=== PATIENT | female | born 1965 | race Caucasian/White ===

== ENCOUNTER 2019-09-09 07:36 | Outpatient (CLI) | payer MEDICAID ==
[2019-09-09 08:33] LABS: CREATININE 0.75 mg/dL (0.55-1.02)
[2019-09-09] MEDS ORDERED: OMNIPAQUE 350 MG/ML, 75ML BOTTLE ONE (09:12)
== END 2019-09-09 23:59 | disposition home or self-care (01) ==
LOC: RAD 07:36
PROVIDERS: ATTEND Physician Assistant
DX: R07.81 Pleurodynia (principal); M25.78 Osteophyte, vertebrae
CPT/HCPCS: 36415; 71275; 82565; Q9967

== ENCOUNTER 2019-10-02 12:05 | Emergency (ER) | payer MEDICAID ==
[~2019-10-02] VITALS: Ht 170.2 cm; Wt 64.9 kg
[2019-10-02 12:47] LABS: BASOPHILS # (AUTO) 0.04 x10^3/uL (0-0.1); BASOPHILS % (AUTO) 1 % (0-1); EOSINOPHILS % (AUTO) 1 % (1-7); LYMPHOCYTES # (AUTO) 1.62 x10^3/uL (1-3.4); LYMPHOCYTES % (AUTO) 19 % (22-44); MD NO; MEAN CORPUSCULAR HEMOGLOBIN 31.7 pg (27.0-34.8); MEAN CORPUSCULAR HGB CONC 33.4 g/dL (32.4-35.8); MEAN PLATELET VOLUME 7.6 fL (7.4-10.4); MONOCYTES # (AUTO) 0.92 x10^3/uL (0.2-0.8); MONOCYTES % (AUTO) 11 % (2-9); NEUTROPHILS # (AUTO) 5.93 x10^3/uL (1.8-6.8); NEUTROPHILS % (AUTO) 69 % (42-75); PLATELET COUNT 259 x10^3/uL (130-400); RED BLOOD COUNT 4.83 x10^6/uL (3.82-5.3); RED CELL DISTRIBUTION WIDTH 19.5 % (9.6-15.2)
[2019-10-02 12:54] LABS: ALBUMIN 2.6 g/dL (3.4-5.0); ANION GAP 7 mmol/L (5-15); CALCIUM 7.6 mg/dL (8.5-10.1); CHLORIDE 96 mmol/L (98-107); CREATININE 0.74 mg/dL (0.55-1.02)
[2019-10-02 12:59] LABS: ALKALINE PHOSPHATASE 312 U/L (45-117); BILIRUBIN,TOTAL 0.9 mg/dL (0.2-1.0); TOTAL PROTEIN 7.3 g/dL (6.4-8.2); TROPONIN I < 0.015 ng/mL (0.000-0.045)
[2019-10-02 13:09] LABS: ALANINE AMINOTRANSFERASE 103 U/L (12-78)
--- NOTE | 2019-10-02 13:17 | NUR ---
PT ABLE TO AMBULATE STEADILY TO BATHROOM TO PROVIDE URINE SAMPLE. PT PLACED ON CARDIAC AND VITALS MONITORS. PT URINE WALKED TO LAB.
[2019-10-02 13:24] LABS: MICROSCOPIC NOT IND
[2019-10-02 14:36] VITALS: BP 156/101
== END 2019-10-02 14:47 | disposition home or self-care (01) ==
LOC: ED 14:43
DX: R07.1 Chest pain on breathing (principal); R60.0 Localized edema; K70.9 Alcoholic liver disease, unspecified; R00.0 Tachycardia, unspecified; I11.9 Hypertensive heart disease without heart failure; F17.200 Nicotine dependence, unspecified, uncomplicated
CPT/HCPCS: 36415; 71045; 80053; 81003; 83880; 84484; 85025; 93005; 99285